=== PATIENT | female | born 1970 | race Hispanic/Latino ===

== ENCOUNTER 2018-12-03 07:13 | Day surgery (SDC) | payer OTHER ==
[2018-12-03] MEDS ORDERED: CEFAZOLIN/SWI 2gm 2 GM/20 ML SYR ONE (07:47)
[2018-12-03] MEDS ORDERED: Ringers Lactate 1,000 ML IV ONE (07:47)
[2018-12-03 07:51] LABS: Specific Gravity 1.025 (1.005-1.030)
[2018-12-03] MEDS ORDERED: PROPOFOL 200 MG/20 ML VIAL IV ONE (08:25)
[2018-12-03] MEDS ORDERED: GLYCOPYRROLATE 0.2 MG/ML SYR ONE (08:25)
[2018-12-03] MEDS ORDERED: MIDAZOLAM HCL 2 MG/2 ML INJ ONE (08:25)
[2018-12-03] MEDS ORDERED: LIDOCAINE 2% MPF 5 ML VIAL ONE (08:26)
[2018-12-03] MEDS ORDERED: FENTANYL CITR 250 MCG/5 ML ONE (08:27)
[2018-12-03] MEDS ORDERED: ROCURONIUM 50 MG/5 ML VIAL IV ONE (08:33)
[2018-12-03] MEDS ORDERED: ONDANSETRON 4 MG/2 ML VIAL ONE ×2 (08:33→12:05)
[2018-12-03] MEDS ORDERED: NEOSTIGMINE 1 MG/ML -10 ML VIAL ONE (08:33)
[2018-12-03] MEDS ORDERED: BUPIVACA 0.25%/EPI 0.0005%/PF 30 ML VIAL ONE (08:45)
[2018-12-03] MEDS ORDERED: NA CHLORIDE 0.9% 1,000 ML ONE (09:16)
--- NOTE | 2018-12-03 09:47 | P.OP ---
Flyer Repairer: Davi Galarza Preoperative diagnosis: Ventral Abdominal Wall Hernia Postoperative diagnosis: Ventral Abdominal Wall Hernia Primary procedure: Laparoscopic Ventral Abdominal Wall Hernia Repair with Mesh Secondary procedure: Laparoscopic adhesiolysis Anesthesia: GETA + Local Estimated blood loss: <2cc Specimen: None Findings: Ventral abdominal wall hernia - 5cm round Complications: None Implants: Bard Ventralite ST [id number] mesh with echo position Transferred to: Recovery Room Condition: Good
[2018-12-03] MEDS ORDERED: KETOROLAC 30 MG/ML INJ ONE (09:50)
[2018-12-03] MEDS ORDERED: HYDROCODONE/APAP 7.5/325 MG TAB ONE (11:53)
[2018-12-03 11:59] VITALS: TEMP 97.6
[2018-12-03 12:38] VITALS: BP 93/67; O2SAT 96
--- NOTE | 2018-12-03 20:08 | OP ---
Date of Procedure: 12/03/2018 Surgeon: Dagoberto Arias MD, Pump Runner: Debi Palencia. Preoperative Diagnosis: Ventral abdominal hernia. Postoperative Diagnosis: Ventral abdominal hernia. Procedures Performed: 1.Laparoscopic ventral abdominal hernia repair with mesh. 2.Laparoscopic adhesiolysis. Anesthesia: General endotracheal plus local with 0.25% Marcaine with epinephrine. Estimated Blood Loss: Less than 2 cc. Specimen: None. Findings: Ventral abdominal hernia approximately 5 cm, round, midline. Complications: None. Implants: Bard Ventralight ST 15 cm x 10 cm mesh with Echo Positioning System. Disposition: Transferred to recovery room in good condition. Procedure In Detail: Informed consent was obtained. The patient was brought to the operating room, prepped and draped in the usual sterile fashion after adequate anesthesia was achieved. An area of t he left upper quadrant was anesthetized with 0.25% Marcaine, sharply incised, a 5 mm 0-degree optical trocar was introduced in the abdomen without evidence of complication. Insufflation was obtained to 15 mmHg at this time. There was no injury to vital structures upon entry to the abdomen. The area was inspected for proper hemostasis and injury, which was achieved at this time. There was no bleedi ng from the port site specifically. Additional trocar site was chosen in the left lower quadrant. T his was similarly anesthetized, sharply incised. A 5 mm trocar was introduced in the abdomen without evidence of complication. Additional trocar site chosen in the right upper quadrant. This was annie larly anesthetized, sharply incised. A 5 mm trocar was introduced in the abdomen without evidence of complication. The left upper quadrant trocar was then up-sized to a 12 mm under direct visualizatio n without evidence of complication. Inspection showed that the patient had a large ventral hernia in the midline supraumbilical position with intraabdominal omental attachments. These were taken down using the LigaSure device to mobilize the omentum back in the normal anatomic position. At this poin t, the falciform ligament was taken down slightly superiorly using the LigaSure device to ensure a ni ce flat landing zone for the mesh should it become necessary. The hernia was sized to be approximate ly 5 cm in size and as such, a 10 cm x [address] mesh was brought onto the field, florecita marva in through the trocar, and the deployment system was deployed using a Alberto-Jovana suture pass er through the middle of the defect. At this point, the ReliaTack absorbable fixation system was use d to secure a circumferential crown of tacks, and the deployment system was then removed to the left lower quadrant 12 mm trocar and was taken out in its entirety. The remainder of the tacks were then placed into the abdominal wall in a double crown type fashion with good approximation of tissues. Th e left upper quadrant 12 mm trocar was then removed and the trocar site was closed using a Alberto-Art shepard suture passer with 0 Vicryl in interrupted fashion with good approximation of tissues. The abd omen was then completely desufflated under direct visualization without evidence of complication, and all trocars removed. All skin incisions were copiously irrigated and closed with a 4-0 Monocryl in a running fashion. Dermabond placed over top. The patient tolerated the procedure well without evid ence of complication and transferred to the PACU in good condition. All counts were correct at the e nd of the case. IZA/NIKHIL Voice ID: [id number] Report ID: [id number]
== END 2018-12-03 12:20 | disposition home or self-care (01) ==
LOC: OR 07:13
PROVIDERS: ATTEND Surgery
PROC: 0WUF4JZ Supplement Abdominal Wall with Synthetic Substitute, Percutaneous Endoscopic Approach (ICD-10-PCS; principal; 2018-12-03 08:30)
DX: K43.9 Ventral hernia without obstruction or gangrene (principal); K66.0 Peritoneal adhesions (postprocedural) (postinfection)
CPT/HCPCS: 81025; J0690; J2250; J2405; J2704; J2710; J3010; J7030

== ENCOUNTER 2019-02-04 08:32 | Day surgery (SDC) | payer OTHER ==
--- OUTSIDE RECORDS SUMMARY | 2019-02-04 08:35 | XMS REPORT ---
:1970 [facility] Address [address] [place] [address] Dr. Mahan [address] [place] [id number] Care Team Providers Name Role Phone Unavailable Unavailable Unavailable Problems This patient has no known problems. Allergies, Adverse Reactions, Alerts This patient has no known allergies or adverse reactions. Medications This patient has no known medications.
[2019-02-04 08:53] LABS: Specific Gravity 1.025 (1.005-1.030)
[2019-02-04] MEDS ORDERED: Ringers Lactate 1,000 ML IV ONE (09:01)
[2019-02-04] MEDS ORDERED: LIDOCAINE 1% W/EPI 1:100,000 MDV 50 ML VIAL ONE (10:55)
[2019-02-04] MEDS ORDERED: NA CHLORIDE 0.9% 1,000 ML ONE (10:55)
[2019-02-04] MEDS ORDERED: PROPOFOL 200 MG/20 ML VIAL IV ONE (10:56)
[2019-02-04] MEDS ORDERED: FENTANYL CITR 100 MCG/2 ML ONE (10:57)
[2019-02-04] MEDS ORDERED: MIDAZOLAM HCL 2 MG/2 ML INJ ONE (10:57)
[2019-02-04] MEDS ORDERED: LIDOCAINE 1% MPF 5 ML VIAL ONE (10:57)
[2019-02-04] MEDS ORDERED: ONDANSETRON 4 MG/2 ML VIAL ONE ×2 (10:58)
[2019-02-04] MEDS ORDERED: KETOROLAC 30 MG/ML INJ ONE (11:48)
[2019-02-04 12:32] VITALS: BP 114/57; TEMP 96.7; O2SAT 95
--- NOTE | 2019-02-04 23:18 | OP ---
Date of Procedure: 02/04/2019 Surgeon: Shruti Grimes MD Preoperative Diagnoses: Menorrhagia, AUB-O, morbid obesity, leiomyoma. Postoperative Diagnoses: Menorrhagia, AUB-O, morbid obesity, leiomyoma. Procedures Performed: Hysteroscopy, D and C. Anesthesia: General with LMA. Specimens: Endometrial curettings. Complications: No complications. Drains: No drains. Condition: Stable. Findings: Uterus anteflexed. Cavity empty. Both tubal ostia were well visualized. Endometrium thi ckened. Description Of Procedure: After informed consent was verified, the patient was taken back to the OR, placed in supine fashion on the operating table after general anesthesia was given. She was placed in a dorsal lithotomy position using Bautista stirrups. Pelvic exam performed. Uterus anteflexed about 8-week size. Speculum was placed to expose the cervix. Prep x3 with Betadine was done. Anterior l ip was grasped with 2 Allis clamps. Diagnostic SlimLine hysteroscope was introduced through the cerv ical canal with a 30-degree lens and normal saline as distention medium, 17-Turkish sheath without any problems. Under direct visualization, cavity was entered. The cavity appeared to be unremarkable. Endometrium appeared to be unremarkable. Both tubal ostia were normal. No intracavitary lesions or no impression of the leiomyoma into the endometrial canal. Scope was then removed after pictures were taken. A #2 endometrial curette was used for the curettin gs. Optimal sampling was performed, handed out for permanent pathology. All the instruments were re moved. Instrument and sponge counts were done and were correct at the end of the case. The patient tolerated the procedure well. She will follow up with me in 1 week. EBL minimal. SK/MODL Voice ID: [id number] Report ID: [id number]
== END 2019-02-04 13:00 | disposition home or self-care (01) ==
LOC: OR 08:32
PROVIDERS: ATTEND Obstetrics & Gynecology
PROC: 0UJD8ZZ Inspection of Uterus and Cervix, Via Natural or Artificial Opening Endoscopic (ICD-10-PCS; 2019-02-04)
PROC: 0UDB7ZX Extraction of Endometrium, Via Natural or Artificial Opening, Diagnostic (ICD-10-PCS; principal; 2019-02-04 10:30)
DX: N92.1 Excessive and frequent menstruation with irregular cycle (principal); D25.2 Subserosal leiomyoma of uterus; E66.01 Morbid (severe) obesity due to excess calories; Z68.37 Body mass index [BMI] 37.0-37.9, adult
CPT/HCPCS: 81025; 88305; J2250; J2405; J2704; J3010; J7030

== ENCOUNTER 2023-03-25 09:35 | Observation (INO) | payer OTHER ==
--- OUTSIDE RECORDS SUMMARY | 2023-03-25 09:38 | XMS REPORT | Continuity of Care Document ---
:[address] [facility] t Address [address] [facility] [address] [place] [address] Care Team Providers Name Role Phone Unavailable Unavailable Unavailable Problems Condition Condition Condition Status Onset Resolution Last Treating Co mments Source Name Details Category Date Date Treatment Clinician Date Pain, Pain, Diagnosis Active Common joint, joint, Spirit knee, knee, - [facility] right right [facility] Pain, Pain, Diagnosis Active Common joint, joint, Spirit knee, left knee, left [facility] Primary Primary Diagnosis Active Commo n osteoarthr osteoarthr Sp jadon itis of [facility]is of [facility] right knee right knee [facility] Primary Primary Diagnosis Active Commo n osteoarthr osteoarthr Sp jadon itis of itis of [facility] left knee left knee [facility] Allergies, Adverse Reactions, Alerts This patient has no known allergies or adverse reactions. Medications Ordered Filled Start Stop Current Ordering Indication Dosage Frequency Signature Comments Components Source Medication Medication Date Date Medication? Clinician (SIG) Name Name Cetirizine Cetirizine Yes Henry 1 tablet Common HCl HCl [facility] Benzonatate Benzonatate Yes Henry 1 capsule Common [facility] Probiotic Probiotic Yes Henry as Co mmon Jeong directed [facility] D3 Maximum D3 Maximum Yes Henry 1 capsule Common Strength Strength [facility] Procedures This patient has no known procedures. Encounters Start End Encounter Admission Attending Care Care Encounter Source Date/Time Date/Time Type Type Clinicians Facility Department ID 2019-06-14 2019-06-14 [id number] Common 08:30:00 08:30:00 [facility] Results This patient has no known results.
[2023-03-25] MEDS ORDERED: FAMOTIDINE 20 MG/2 ML VIAL IV ONE (10:18)
[2023-03-25] MEDS ORDERED: HALOPERIDOL LACT 5 MG/ML INJ ONE (10:18)
[2023-03-25] MEDS ORDERED: NA CHLORIDE 0.9% 1,000 ML ONE ×2 (10:18→12:51)
[2023-03-25 10:35] LABS: Absolute Lymphocytes (CBC) 0.8 K/uL (0.7-4.9); Hematocrit 41.1 % (36.0-45.0); Lymphocytes % 7.1 % (15.3-44.8); MCV 81.8 fL (80-100); MPV 7.1 fL (7.6-11.3); Platelets 296 thou/uL (152-406); RBC Red Blood Cell Count 5.03 M/uL (3.86-4.86)
[2023-03-25 10:45] LABS: Albumin 3.7 g/dL (3.4-5.0); Bilirubin Total 0.7 mg/dL (0.2-1.0); Potassium 3.5 mEq/L (3.5-5.1); Protein, Total 8.8 g/dL (6.4-8.2)
--- NOTE | 2023-03-25 11:28 | RAD REPORT ---
EXAM DESCRIPTION: CT - Abdomen Pelvis W Contrast - 03/25/2023 11:04 am CLINICAL HISTORY: Abdominal pain COMPARISON: 2011 TECHNIQUE: Computed axial tomography of the abdomen pelvis was obtained. 100 cc Isovue-300 was admin istered intravenously. Oral contrast was not requested which limits evaluation of bowel and appendix All CT scans are performed using dose optimization technique as appropriate and may include automated exposure control or mA/KV adjustment according to patient size. FINDINGS: Mild fatty liver. Multiple gallstones. Gallbladder wall is not thickened. Spleen, pancreas, adrenals and kidneys are unremarkable. Umbilical hernia with a neck 8 centimeters. Herniated sac 16 centimeters. Small and large bowel exten ds through the hernia. There is borderline dilatation of small bowel proximal to the hernia. No free air. No adnexal mass IMPRESSION: Large umbilical hernia containing small and large bowel. Borderline dilatation of small bowel proximal to the hernia suggests that a partial early mechanical obstruction may be present
[2023-03-25 12:09] LABS: Blood Morphology Comment NOT SEEN (NOT SEEN); Platelet Estimate ADEQ; White Blood Cell Scan OK (OK)
--- NOTE | 2023-03-25 12:43 | EDPHYS ---
Physician Documentation [facility] Name: Mary Salter Age: 52 yrs Sex: Female : 1970 Arrival Date: 03/25/2023 Time: 09:35 Bed 8 Private MD: ED Physician Eyal Vargas HPI: 03/25 11:39 This 52 yrs old Female presents to ER via Wheelchair with complaints of snw Abdominal Pain, Nausea/Vomiting. 11:39 The patient presents with abdominal pain in the upper abdomen. Onset: The snw symptoms/episode began/occurred suddenly, yesterday. The symptoms do not radiate. Associated signs and symptoms: Pertinent positives: nausea and vomiting. The symptoms are described as crampy, stabbing. Severity of pain: At its worst the pain was moderate. It is unknown whether or not the patient has recently seen a physician. Historical: - Allergies: 09:53 No Known Allergies; ap3 - Home Meds: 09:53 None [Active]; ap3 - PMHx: 09:53 None; ap3 - Immunization history:: Client reports receiving the 2nd dose of the Covid vaccine. - Social history:: Smoking status: Patient denies any tobacco usage or history of. ROS: 10:53 Constitutional: Negative for fever, chills, and weight loss, Eyes: Negative for injury, snw pain, redness, and discharge, ENT: Negative for injury, pain, and discharge, Neck: Negative for injury, pain, and swelling, Cardiovascular: Negative for chest pain, palpitations, and edema, Respiratory: Negative for shortness of breath, cough, wheezing, and pleuritic chest pain, Back: Negative for injury and pain, : Negative for injury, bleeding, discharge, and swelling, MS/Extremity: Negative for injury and deformity, Skin: Negative for injury, rash, and discoloration, Neuro: Negative for headache, weakness, numbness, tingling, and seizure, Psych: Negative for depression, anxiety, suicide ideation, homicidal ideation, and hallucinations. 10:53 Abdomen/GI: Positive for abdominal pain, nausea, vomiting, of the umbilical area, right upper quadrant and left upper quadrant. Exam: 10:51 Constitutional: This is a well developed, obese patient who is awake, alert, and in no snw acute distress. Head/Face: Normocephalic, atraumatic. Eyes: Pupils equal round and reactive to light, extra-ocular motions intact. Lids and lashes normal. Conjunctiva and sclera are non-icteric and not injected. Cornea within normal limits. Periorbital areas with no swelling, redness, or edema. ENT: Nares patent. No nasal discharge, no septal abnormalities noted. Tympanic membranes are normal and external auditory canals are clear. Oropharynx with no redness, swelling, or masses, exudates, or evidence of obstruction, uvula midline. Mucous membranes moist. Neck: Trachea midline, no thyromegaly or masses palpated, and no cervical lymphadenopathy. Supple, full range of motion without nuchal rigidity, or vertebral point tenderness. No Meningismus. Chest/axilla: Normal chest wall appearance and motion. Nontender with no deformity. No lesions are appreciated. Cardiovascular: Regular rate and rhythm with a normal S1 and S2. No gallops, murmurs, or rubs. Normal PMI, no JVD. No pulse deficits. Respiratory: Lungs have equal breath sounds bilaterally, clear to auscultation and percussion. No rales, rhonchi or wheezes noted. No increased work of breathing, no retractions or nasal flaring. Back: No spinal tenderness. No costovertebral tenderness. Full range of motion. Skin: Warm, dry with normal turgor. Normal color with no rashes, no lesions, and no evidence of cellulitis. MS/ Extremity: Pulses equal, no cyanosis. Neurovascular intact. Full, normal range of motion. Neuro: Awake and alert, GCS 15, oriented to person, place, time, and situation. Cranial nerves II-XII grossly intact. Motor strength 5/5 in all extremities. Sensory grossly intact. Cerebellar exam normal. Normal gait. Psych: Awake, alert, with orientation to person, place and time. Behavior, mood, and affect are within normal limits. 10:51 Abdomen/GI: Inspection: obese Bowel sounds: normal, Palpation: moderate abdominal tenderness, in the umbilical area, right upper quadrant and left upper quadrant. Vital Signs: 09:52 BP 133 / 65; Pulse 71; Resp 18; Temp 98.5; Pulse Ox 98% ; Weight 111.13 kg; Pain 10/10; ap3 12:35 BP 142 / 74; Pulse 75; Resp 18; Pulse Ox 99% ; ko1 14:19 BP 138 / 74; Pulse 70; Resp 16; Pulse Ox 100% ; ko1 09:52 Pain Scale: Adult ap3 MDM: 09:39 Patient medically screened. [facility] 11:38 Differential diagnosis: bowel obstruction, cholecystitis, Cholelithiasis, snw diverticulitis, gastritis, non-specific abd pain. Data reviewed: vital signs, nurses notes. Management of patient was discussed with the following: Heat Treatment Technician: Dr. Arias repaired ventral hernia in 2019. Consulted today for recommendations. I considered the following discharge prescriptions or medication management in the emergency department Medications were administered in the Emergency Department. See OCT. 12:38 Counseling: I had a detailed discussion with the patient and/or guardian regarding: the [facility] historical points, exam findings, and any diagnostic results supporting the discharge/admit diagnosis, the presence of at least one elevated blood pressure reading (>120/80) during this emergency department visit, lab results, radiology results, the need for further work-up and treatment in the hospital. Response to treatment: the patient's symptoms have markedly improved after treatment. ED course: Dr. Arias in to see pt> admit to hospitalist and consult him. 12:43 Management of patient was discussed with the following: Hospitalist: To be admitted to [facility] Dr. Arreaga, consult to Dr. Arias. 03/25 10:02 Order name: CBC with Diff; Complete Time: 12:15 snw 03/25 10:02 Order name: CMP; Complete Time: 10:48 snw 03/25 10:02 Order name: Lipase; Complete Time: 10:48 snw 03/25 10:02 Order name: Urinalysis w/ reflexes; Complete Time: 13:06 snw 03/25 12:09 Order name: CBC Smear Scan; Complete Time: 12:15 EDMS 03/25 15:12 Order name: Phosphorus; Complete Time: 15:15 EDMS 03/25 15:12 Order name: NT PRO-BNP; Complete Time: 15:15 EDMS 03/25 15:12 Order name: T4 Free; Complete Time: 15:15 EDMS 03/25 15:12 Order name: Magnesium; Complete Time: 15:15 EDMS 03/25 15:12 Order name: Thyroid Stimulating Hormone; Complete Time: 15:15 EDMS 03/25 10:02 Order name: CT Abd/Pelvis - IV Contrast Only; Complete Time: 11:31 snw 03/25 12:39 Order name: Diet Clear Liquid; Complete Time: 12:39 snw 03/25 14:26 Order name: Clear Liquid [facility] 03/25 10:02 Order name: IV Saline Lock; Complete Time: 10:23 snw 03/25 10:02 Order name: Labs collected and sent; Complete Time: 10:23 snw Administered Medications: 10:23 Drug: NS 0.9% IV 1000 ml Route: IV; Rate: 1 bolus; Site: right antecubital; ko1 10:23 Drug: Famotidine IVP 20 mg Route: IVP; Site: right antecubital; ko1 10:24 Drug: Haloperidol IVP 2.5 mg/50 mL 2.5 mg Route: IVP; Site: right antecubital; ko1 12:56 Drug: NS 0.9% IV 1000 ml Route: IV; Rate: 125 ml/hr; Site: right antecubital; ko1 12:57 Drug: Piperacillin-Tazobactam IVPB 3.375 grams Route: IVPB; Infused Over: 60 mins; ko1 Site: right antecubital; Disposition: 17:34 Co-signature as Attending Physician, Eyal Vargas MD I reviewed the patient's care rn provided by the Advanced Practice Provider and agree with the diagnosis and treatment plan. Disposition Summary: 03/25/23 12:43 Hospitalization Ordered Hospitalization Status: Observation snw Provider: Johnathan Arreaga Location: Telemetry/MedSurg (observation) snw Condition: Stable snw Problem: new snw Symptoms: have improved snw Bed/Room Type: Standard snw Room Assignment: 229(03/25/23 16:48) bd Diagnosis - Small bowel obstruction snw - Other cholelithiasis without obstruction snw Forms: - Medication Reconciliation Form snw - SBAR form snw - Leadership Thank You Letter snw Signatures: Dispatcher [employer] Elana Hay Shelly, FNP-C RATE INSERTER-Csnw Eyal Vargas MD MD rn Prokisch, Amanda, RN RN ap3 Clair Hilton RN RN ko1 Corrections: (The following items were deleted from the chart) 16:48 12:43 snw bd
--- NOTE | 2023-03-25 12:43 | ER ---
Nurse's Notes [facility] Name: Mary Salter Age: 52 yrs Sex: Female : 1970 Arrival Date: 03/25/2023 Time: 09:35 Bed 8 Private MD: Diagnosis: Small bowel obstruction;Other cholelithiasis without obstruction Presentation: 03/25 09:52 Chief complaint: Patient states: she started having mid left abdominal pain last night ap3 along with nausea and vomiting. patient states the location of her pain is the same location of which she had a hernia repair in the past. Coronavirus screen: At this time, the client does not indicate any symptoms associated with coronavirus-19. Ebola Screen: No symptoms or risks identified at this time. Initial Sepsis Screen: Does the patient meet any 2 criteria? No. Patient's initial sepsis screen is negative. Does the patient have a suspected source of infection? Yes: Acute abdominal pain. Risk Assessment: Do you want to hurt yourself or someone else? Patient reports no desire to harm self or others. Onset of symptoms was March 24, 2023. 09:52 Method Of Arrival: Wheelchair ap3 09:52 Acuity: SABRINA 3 ap3 Triage Assessment: 09:53 General: Appears ill, Behavior is calm, cooperative, appropriate for age. Pain: ap3 Complains of pain in umbilical area, right upper quadrant and right lower quadrant Pain currently is 10 out of 10 on a pain scale. Also complains of decreased appetite, nausea. Neuro: Level of Consciousness is awake, alert, obeys commands, Oriented to person, place, time, situation. Cardiovascular: Patient's skin is warm and dry. Respiratory: Airway is patent Respiratory effort is even, unlabored, Respiratory pattern is regular, symmetrical. GI: Reports lower abdominal pain, upper abdominal pain, nausea, vomiting. Historical: - Allergies: 09:53 No Known Allergies; ap3 - Home Meds: 09:53 None [Active]; ap3 - PMHx: 09:53 None; ap3 - Immunization history:: Client reports receiving the 2nd dose of the Covid vaccine. - Social history:: Smoking status: Patient denies any tobacco usage or history of. Screenin:54 [facility] ED Fall Risk Assessment (Adult) History of falling in the last 3 months, ap3 including since admission No falls in past 3 months (0 pts). Abuse screen: Denies threats or abuse. Nutritional screening: No deficits noted. Tuberculosis screening: No symptoms or risk factors identified. Assessment: 09:45 General: Appears in no apparent distress. ill, Behavior is calm, cooperative, ko1 appropriate for age. Pain: Complains of pain in abdomen. Neuro: No deficits noted. Cardiovascular: No deficits noted. Respiratory: No deficits noted. GI: Bowel sounds present X 4 quads. Abd is soft X 4 quads Abdomen is tender to palpation in umbilical area. : No deficits noted. EENT: No deficits noted. Derm: No deficits noted. Musculoskeletal: No deficits noted. Vital Signs: 09:52 BP 133 / 65; Pulse 71; Resp 18; Temp 98.5; Pulse Ox 98% ; Weight 111.13 kg; Pain 10/10; ap3 12:35 BP 142 / 74; Pulse 75; Resp 18; Pulse Ox 99% ; ko1 14:19 BP 138 / 74; Pulse 70; Resp 16; Pulse Ox 100% ; ko1 09:52 Pain Scale: Adult ap3 ED Course: 09:37 Patient arrived in ED. ts1 09:38 Salena Pérez FNP-C is [facility]. snw 09:38 Eyal Vargas MD is Attending Physician. snw 09:45 Provided Education on: NA. Door closed. Noise minimized. Lights dimmed. ko1 09:47 Shawnee Dalal, RN is Primary Nurse. ph 09:53 Triage completed. ap3 09:54 Arm band placed on right wrist. ap3 09:54 Patient has correct armband on for positive identification. Bed in low position. Call ap3 light in reach. Side rails up X 1. Adult w/ patient. Pulse ox on. NIBP on. 10:00 Inserted saline lock: 20 gauge in right antecubital area, using aseptic technique. ko1 Blood collected. 10:23 CBC with Diff Sent. ko1 10:23 CMP Sent. ko1 10:23 Lipase Sent. ko1 11:06 CT Abd/Pelvis - IV Contrast Only In Process Unspecified. EDMS 12:42 Johnathan Arreaga MD is Hospitalizing Provider. snw 14:19 No provider procedures requiring assistance completed. ko1 17:09 Patient admitted, IV remains in place. ko1 Administered Medications: 10:23 Drug: NS 0.9% IV 1000 ml Route: IV; Rate: 1 bolus; Site: right antecubital; ko1 10:23 Drug: Famotidine IVP 20 mg Route: IVP; Site: right antecubital; ko1 10:24 Drug: Haloperidol IVP 2.5 mg/50 mL 2.5 mg Route: IVP; Site: right antecubital; ko1 12:56 Drug: NS 0.9% IV 1000 ml Route: IV; Rate: 125 ml/hr; Site: right antecubital; ko1 12:57 Drug: Piperacillin-Tazobactam IVPB 3.375 grams Route: IVPB; Infused Over: 60 mins; ko1 Site: right antecubital; Medication: 14:19 VIS not applicable for this client. ko1 Outcome: 12:43 Decision to Hospitalize by Provider. snw 17:09 Admitted to Med/surg accompanied by tech, via wheelchair, room 229, with chart, Report ko1 called to ALEENA Petty 17:09 Condition: improved 17:09 Instructed on the need for admit. 17:24 Patient left the ED. ko1 Signatures: Dispatcher [employer] EDMS Salena Pérez, CLINICAL HAEMATOLOGIST-C CLINICAL HAEMATOLOGIST-Csnw Shawnee Dalal RN RN Goldie Medina RN RN ap3 Clair Hilton RN RN ko1 Cheyenne Rosenberg PAS PAS ts1
[2023-03-25] MEDS ORDERED: NA CHLORIDE 0.9% 250 ML ONE (12:52)
[2023-03-25] MEDS ORDERED: PIPERACIL/TAZO 3.375 GM VIAL IV ONE (12:52)
[2023-03-25 12:59] LABS: Urine Bilirubin NEGATIVE (Negative); Urine Blood Negative (Negative); Urine Clarity Clear (Clear); Urine Color Colorless (Yellow); Urine Glucose NEGATIVE (Negative); Urine Protein NEGATIVE (Negative); Urine Urobilinogen Normal (Normal); Urine pH 6.5 (5.0-7.0)
[2023-03-25 13:00] LABS: Specific Gravity > 1.030 (1.005-1.030)
[2023-03-25] MEDS ORDERED: ACETAMINOPHEN 325 MG TABLET PO PRN (14:30)
[2023-03-25] MEDS ORDERED: ONDANSETRON 4 MG/2 ML VIAL IV PRN (14:31)
--- NOTE | 2023-03-25 14:33 | P.HP ---
Certification for Inpatient Patient admitted to: Observation With expected LOS: <2 Midnights Patient will require the following post-hospital care: None Practitioner: I am a practitioner with admitting privileges, knowledge of patient current condition, hospital course, and medical plan of care. Services: Services provided to patient in accordance with Admission requirements found in Title 42 Section 412.3 of the Code of Federal Regulations Patient History Date of Service: 03/25/23 Reason for admission: Abdominal pain History of Present Illness: Patient is a 52-year-old female with a past medical history significant for morbid obesity, umbilical hernia who presents with complaint of abdominal pain located in the periumbilical area with radiation to the upper quadrants onset yesterday. Patient rated pain as 10/10 in severity and described pain as sharp in quality. Patient reported associated signs and symptoms of nausea, vomiting and chills. Patient denies any other signs and symptoms. Symptoms are aggravated or relieved by nothing. Patient decided to present to the hospital due to worsening symptoms. Of note, patient reported that her last bowel movement was yesterday. Allergies No Known Allergies Allergy (Verified 02/01/19 12:32) Home Medications: Aspirin [Aspirin EC 81 MG] 1 tab PO BEDTIME 03/25/23 - Past Medical/Surgical History -: Morbid obesity -: Umbilical hernia -: -: Left toe surgery - Family History Mother -: Hypertension, Other (see notes) Notes: HLD Father -: Hypertension, Diabetes, Stroke Notes: triple bypass, HLD - Social History Smoking Status: Never smoker Alcohol use: No CD- Drugs: No Caffeine use: Yes Place of Residence: Home Review of Systems General: Chills Eyes: Unremarkable ENT: Unremarkable Respiratory: Unremarkable Cardiovascular: Unremarkable Gastrointestinal: Nausea, Vomiting, Abdominal Pain Genitourinary: Unremarkable Musculoskeletal: Unremarkable Integumentary: Unremarkable Neurological: Unremarkable Lymphatics: Unremarkable Physical Examination - Physical Exam General: Alert, In no apparent distress, Oriented x3, Cooperative HEENT: Atraumatic, PERRLA, Mucous membr. moist/pink, EOMI, Sclerae nonicteric Neck: Supple, 2+ carotid pulse no bruit, No LAD, Without JVD or thyroid abnormality Respiratory: Clear to auscultation bilaterally, Normal air movement Cardiovascular: No edema, Regular rate/rhythm, Normal S1 S2 Capillary refill: <2 Seconds Gastrointestinal: Normal bowel sounds, Distended, Tenderness Musculoskeletal: No clubbing, No swelling, No contractures, No tenderness Integumentary: No rashes, No breakdown, No significant lesion Neurological: Normal speech, Normal tone, Normal affect Lymphatics: No axilla or inguinal lymphadenopathy - Studies Laboratory Data (last 24 hrs) 03/25/23 03/25/23 10:15 10:15 WBC 10.80 Hgb 13.5 Hct 41.1 Plt Count 296 Sodium 137 Potassium 3.5 BUN 20 H Creatinine 0.76 Glucose 151 H Total Bilirubin 0.7 AST 26 ALT 31 Alkaline Phosphatase 106 Lipase 20 Assessment and Plan - Plan --Partial SBO. CT imaging indicates Large umbilical hernia containing small and large bowel. Borderline dilatation of small bowel proximal to the hernia suggests that a partial early mechanical obstruction may be present. Surgeon consulted-recommends conservative management for now. Recommended placing patient on a clear liquid diet. Continue IV hydration. Continue supportive care. -- Acute pain. We will manage pain with current pain medication regimen. --Super obesity. BMI greater than 50. Patient counseled on weight reduction, diet and excise therapy. --Umbilical hernia. Patient has a history of umbilical hernia. Further management per surgeon. --Nausea and vomiting. Antiemetics on board. Continue IV hydration. Continue supportive care --DVT prophylaxis with Lovenox subQ. Discharge Plan: Home Plan to discharge in: 48 Hours - Advance Directives Does patient have a Living Will: No Does patient have a Durable POA for Healthcare: No - Code Status/Comfort Care Code Status Assessed: Yes Physician Review: Patient Assessed, Agree with Above Assessment and Plan Critical Care: No
[2023-03-25] MEDS: NA CHLORIDE 0.9% 1,000 ML IV SCH (15:00)
[2023-03-25 15:11] LABS: Magnesium 2.3 mg/dL (1.6-2.4); Phosphorus 2.4 mg/dL (2.5-4.9); Thyroid Stimulating Hormone 0.41 uIU/mL (0.358-3.740)
[2023-03-25 17:32] VITALS: O2SAT 100
[2023-03-25 17:54] VITALS: BMI 37.2
[2023-03-25] MEDS ORDERED: PNEUMOCOCCAL VACCINE 0.5 ML IMVAC ONE (21:30)
[2023-03-26] MEDS: NA CHLORIDE 0.9% 1,000 ML IV SCH ×2 (00:31→10:35)
[2023-03-26 03:49] LABS: Absolute Lymphocytes (CBC) 2.2 K/uL (0.7-4.9); Hematocrit 34.6 % (36.0-45.0); Lymphocytes % 30.5 % (15.3-44.8); MCV 81.6 fL (80-100); MPV 7.2 fL (7.6-11.3); Platelets 256 thou/uL (152-406); RBC Red Blood Cell Count 4.24 M/uL (3.86-4.86)
[2023-03-26 04:02] LABS: Albumin 2.8 g/dL (3.4-5.0); Bilirubin Total 0.8 mg/dL (0.2-1.0); Potassium 3.6 mEq/L (3.5-5.1); Protein, Total 6.7 g/dL (6.4-8.2)
[2023-03-26] MEDS ORDERED: POTASSIUM PHOS IN 0.9 % NACL 15 MMOL/250 ML BAG IV ONE (05:01)
[2023-03-26] MEDS ORDERED: ENOXAPARIN 40 MG/0.4 ML SQ SCH (09:00)
[2023-03-26] MEDS ORDERED: ASPIRIN 81 MG CHEWABLE TABLET PO SCH (09:00)
--- NOTE | 2023-03-26 10:45 | CON ---
Date of Consultation: 03/25/2023 Brief History Of Present Illness: The patient is a 52-year-old woman, known to me for past medical h istory of morbid obesity, ventral abdominal hernia repair approximately 4 to 5 years ago, who present s with complaints of abdominal pain in the periumbilical region with radiation to the upper quadrant yesterday. It was 10/10 at home and since being in the emergency room, she has noted significant imp rovement and almost complete resolution of her abdominal pain. She has had a bowel movement as of . No more nausea, vomiting, and the pain is significantly subsided. At this point, she did h ave some nausea, vomiting, and chills prior to this. No sick contacts. No recent travel. No new fo od exposures. Past Medical History: Significant for morbid obesity. Past Surgical History: Included , left toe surgery, and a ventral abdominal hernia repair w ith mesh approximately 4 to 5 years ago. Allergies: NO KNOWN DRUG ALLERGIES. Home Medications: Include aspirin. Family History: Significant for hypertension in her mother and father as well and a triple bypass in her father. Social History: She denies smoking, alcohol, or recreational drug use. Review of Systems: A 10-point review of systems other than HPI, currently denies. Physical Examination: General: At the time of my examination; she is awake, alert, oriented. Psychiatric: Appropriate, conversive. HEENT: She is normocephalic. Sclerae anicteric. Mucous membranes are moist. Oropharynx is clear. Neck: Supple without JVD. Chest: Expansion and excursion. Cardiovascular: Regular rate and rhythm. Pulmonary: Clear to auscultation bilaterally. Abdomen: Soft with positive palpable ventral abdominal hernia. Minimal tenderness to deep palpation . No rebound. No guarding. No focal peritonitis. The hernia is absolutely irreducible as it is qu ite large and she is quite obese, essentially almost completely benign abdominal exam. Extremities: No clubbing, cyanosis, or edema. Skin: Warm and dry. Vital Signs: Blood pressure is 122/59, pulse is 71, respiratory rate 17, temperature 98.6, SpO2 94% on room air. Laboratory Data: Revealed a white blood cell count of 10.8, hemoglobin 13.5, hematocrit 41.1, platel et count was 296, neutrophils are 87%. Sodium 137, potassium 3.5, chloride 105, carbon dioxide 30, B UN 20, creatinine 0.76, glucose 151, phosphorus 2.4, magnesium 2.3, total bilirubin 0.7, direct compo nent was not measured. AST 26, ALT 31, alkaline phosphatase 106. UA was essentially negative. She had imaging performed, which included a CT of the abdomen and pelvis, which was officially read as la rge umbilical hernia containing small and large bowel, borderline dilatation of small bowel proximal to the hernia suggests that a partial early mechanical obstruction may be present. Assessment And Plan: This is a 52-year-old female, who comes in with signs and symptoms of a recurre nt ventral abdominal wall hernia. 1.IV fluid hydration. 2.N.p.o. status. 3.Serial abdominal exams. 4.I have explained the risks, benefits, and alternatives of nonoperative versus operative management as she currently has minimal symptoms and has ongoing normal bowel function at this time. We will s tart her on clear liquid diet and advance as tolerated in the upcoming day and we will attempt nonope rative management. If she fails the nonoperative management, I have discussed the risks, benefits, a nd alternatives of laparoscopic possible open hernia repair including, but not limited to bleeding, i nfection, damage to surrounding tissue, need for further operation and procedures, blood clots, heart attacks, strokes, and other unforeseen complication related to anesthesia, possible need for bowel r esection as well. The patient displayed understanding of the above stated plan and agrees to proceed with nonoperative management at this point and we will consider operative management should she not improve. Thank you for this interesting consult. IZA/NIKHIL Voice ID: [id number] Report ID: [id number]
--- NOTE | 2023-03-26 16:30 | P.DS ---
Admission Date: 03/25/23 Discharge Date: 03/26/23 Disposition: ROUTINE DISCHARGE Discharge Condition: GOOD Reason for Admission: Abdominal pain Consultations: 1. General Surgery Hospital Course: DIAGNOSES: # Partial Mechanical Small Bowel Obstruction secondary to Umbilical Hernia - resolved # Cholelithiasis # Fatty Liver # Morbid Obesity - BMI 37.3 kg/m2 HOSPITAL COURSE: Ms. Mary Salter is a pleasant 52 year old female with a past medical history significant for an umbilical hernia who was admitted to the [facility] on 03/25/2023 for abdominal pain, nausea, and vomiting. She was admitted to the Medicine service. Upon further evaluation, her CT abdomen/pelvis revealed, "large umbilical hernia containing small and large gwen wel. Borderline dilatation of small bowel proximal to the hernia suggests that a partial early mechanical obstruction may be present." She was placed NPO and started on PRN pain medications. General Surgery was consulted and she was evaluated by Dr. Arias. He recommended non-operative management. Her diet was gradually advanced and she tolerated a GI soft diet, without any issues. She has is passing flatus and has had a bowel movement. Dr. Arias has cleared her for discharge with outpatient follow-up. On 03/26/2023, she was seen on rounds and deemed medically stable for discharge. She was discharged with instructions to schedule follow-up appointments with her PCP (Dr. Mahmood) and with General Surgery (Dr. Arias). She was given the opportunity to ask questions and reported no further questions. Furthermore, all questions were answered to the best of my ability. A copy of this discharge summary will be sent to the above providers to facilitate continuity of care. Today, I personally spent 25 minutes on her case, of which greater than 50% of the time was spent in patient education, counseling, and coordination of care as described above. Vital Signs/Physical Exam: Temp Pulse Resp BP Pulse Ox 97.2 F 60 20 118/59 L 93 03/26/23 08:00 03/26/23 08:00 03/26/23 08:00 03/26/23 08:00 03/26/23 08:00 General: Alert, In no apparent distress, Oriented x3 HEENT: Atraumatic, Mucous membr. moist/pink, Sclerae nonicteric Neck: JVD not distended Respiratory: Clear to auscultation bilaterally, Normal air movement Cardiovascular: No edema, Regular rate/rhythm, Normal S1 S2, No gallops, No rubs, No murmurs Gastrointestinal: Normal bowel sounds, Soft and benign, Non-distended, No tenderness, No rebound, No guarding, Other (reducible umilical hernia) Musculoskeletal: No clubbing Integumentary: No rashes Neurological: Normal speech, Normal affect Laboratory Data at Discharge: WBC 7.40 thou/uL (4.3-10.9) 03/26/23 03:09 Hgb 11.4 g/dL (12.0-15.0) L D 03/26/23 03:09 Hct 34.6 % (36.0-45.0) L 03/26/23 03:09 Plt Count 256 thou/uL (152-406) 03/26/23 03:09 Sodium 139 mEq/L (136-145) 03/26/23 03:09 Potassium 3.6 mEq/L (3.5-5.1) 03/26/23 03:09 BUN 13 mg/dL (7-18) 03/26/23 03:09 Creatinine 0.69 mg/dL (0.55-1.02) 03/26/23 03:09 Glucose 107 mg/dL (74-106) H 03/26/23 03:09 Phosphorus 2.4 mg/dL (2.5-4.9) L 03/25/23 10:15 Magnesium 2.3 mg/dL (1.6-2.4) 03/25/23 10:15 Total Bilirubin 0.8 mg/dL (0.2-1.0) 03/26/23 03:09 AST 16 U/L (15-37) 03/26/23 03:09 ALT 21 U/L (13-56) 03/26/23 03:09 Alkaline Phosphatase 72 U/L (45-117) D 03/26/23 03:09 Triglycerides 104 mg/dL (<150) 03/26/23 03:09 Cholesterol 127 mg/dL (<200) 03/26/23 03:09 HDL Cholesterol 32 mg/dL (40-60) L 03/26/23 03:09 Cholesterol/HDL Ratio 3.97 03/26/23 03:09 Lipase 20 U/L (13-75) 03/25/23 10:15 Home Medications: Aspirin [Aspirin EC 81 MG] 1 tab PO BEDTIME 03/25/23 Physician Discharge Instructions: 1. Please call and schedule a follow-up appointment with your PCP (Dr. Mahmood) in 3-5 days - Your CT scan showed fatty liver. Please discuss with your PCP for further evaluation. - Your bloodwork showed mild anemia. Please discuss with your PCP - particularly the possible need for a colonoscopy 2. Please call and schedule a follow-up appointment with your General Surgery (Dr. Arias) in 3-5 days - He will discuss surgery to repair your hernia as an outpatient - Your CT scan showed gallstones. Please discuss with Dr. Arias for further evaluation Diet: AHA Activity: Ad niesha Followup: Dagoberto Arias MD [ACTIVE - CAN ADMIT] - (Call to schedule appointment) Kalin Mahmood MD [ACTIVE - CAN ADMIT] - (Call to schedule appointment) Time spent managing pt's care (in minutes): 25
[2023-03-26 17:34] VITALS: BP 135/65; TEMP 97.3
== END 2023-03-26 18:45 | disposition home or self-care (01) ==
LOC: ER 09:35 → ERHOLD 14:21 → INTOOBSV 14:21 → 2ND 17:07 → OBSVTOIN 03-26 13:42 → INTOOBSV 03-26 13:42
PROVIDERS: ADMIT Internal Medicine; ATTEND Internal Medicine
DX: K42.9 Umbilical hernia without obstruction or gangrene (principal); K56.609 Unspecified intestinal obstruction, unspecified as to partial versus complete obstruction; E66.01 Morbid (severe) obesity due to excess calories; R11.2 Nausea with vomiting, unspecified; R52 Pain, unspecified; K80.20 Calculus of gallbladder without cholecystitis without obstruction; K76.0 Fatty (change of) liver, not elsewhere classified; Z68.37 Body mass index [BMI] 37.0-37.9, adult; Z71.3 Dietary counseling and surveillance
CPT/HCPCS: 36415; 74177; 80053; 80061; 81003; 83690; 83735; 83880; 84100; 84439; 84443; 85025; 96374; 96375; 99285; J1630; J1650; J2543; J7030; J7050; Q9967

== ENCOUNTER 2023-04-11 10:06 | Day surgery (SDC) | payer OTHER ==
[2023-04-11] MEDS ORDERED: Ringers Lactate 1,000 ML IV ONE ×2 (10:33→13:31)
[2023-04-11] MEDS ORDERED: propofoL 200 MG/20 ML VIAL IV ONE (11:34)
[2023-04-11] MEDS ORDERED: ROCURONIUM 50 MG/5 ML VIAL IV ONE (11:34)
[2023-04-11] MEDS ORDERED: LIDOCAINE 2% MPF 5 ML VIAL ONE (11:34)
[2023-04-11] MEDS ORDERED: FENTANYL CITR 100 MCG/2 ML ONE (11:34)
[2023-04-11] MEDS ORDERED: dexAMETHasone 10 MG/ML VIAL ONE (11:34)
[2023-04-11] MEDS ORDERED: MIDAZOLAM HCL 2 MG/2 ML INJ ONE (11:35)
[2023-04-11] MEDS ORDERED: ONDANSETRON 4 MG/2 ML VIAL ONE (11:35)
[2023-04-11] MEDS ORDERED: KETOROLAC 30 MG/ML INJ ONE (11:35)
[2023-04-11] MEDS ORDERED: KETAMINE HCL IN 0.9 % NACL 50 MG/5 ML SYRINGE IV ONE (11:35)
[2023-04-11] MEDS: BUPIVACAINE 0.25% PF 30 ML VIAL ONE ×3 (11:39→12:16)
[2023-04-11] MEDS: CEFAZOLIN SODIUM 2 GM/VIAL ONE ×2 (11:39→12:05)
[2023-04-11] MEDS ORDERED: EPHEDRINE SULF 50 MG/ML VIAL ONE (12:19)
--- NOTE | 2023-04-11 13:36 | P.OP ---
Preoperative diagnosis: Recurrent Ventral Abdominal Hernia Postoperative diagnosis: Recurrent Ventral Abdominal Hernia Primary procedure: Laparoscopic Ventral Hernia Repair with mesh Anesthesia: GETA + Local Estimated blood loss: <10 cc Specimen: omental tissue Findings: ~ 10cm recurrent vent hernia lateral to prior hernia, incarcerated SB, omen Complications: None Implants: Bard Ventralite ST [id number] mesh, sorbafix x 90 tacks Transferred to: Recovery Room Condition: Good
[2023-04-11] MEDS: HYDROMORPHONE HCL 1 MG/ML INJ ONE ×2 (14:04→14:09)
--- NOTE | 2023-04-11 15:07 | OP ---
Date of Procedure: 04/11/2023 Surgeon: Dagoberto Arias MD, Preoperative Diagnosis: Recurrent ventral abdominal hernia. Postoperative Diagnosis: Recurrent ventral abdominal hernia. Procedure: Laparoscopic ventral hernia repair with mesh. Anesthesia: General endotracheal plus local with 0.25% Marcaine. Estimated Blood Loss: Less than 10 cc. Specimen: Omental tissue. Findings: Approximately 10 cm recurrent ventral hernia lateral to prior hernia mesh in place without evidence of bowel adhesions to the mesh. Incarcerated small bowel was noted within the hernia defec t as well as omentum contained and incarcerated within the hernia defect site, which had to be resect ed. Complications: None. Implants: Bard Ventralight ST mesh with Echo Positioning System mesh was utilized with So rbaFix absorbable fixation tacks, 90 tacks utilized. Disposition: The patient was transferred to the recovery room in good condition. Procedure In Detail: After informed consent was obtained, the patient was brought to the operating r oom, prepped and draped in the usual sterile fashion after adequate anesthesia was achieved. I anest hetized an area near the left upper quadrant down to subcutaneous tissues. A 5 mm 0-degree optical t rocar was introduced into the abdomen without evidence of complication. Insufflation was obtained to 15 mmHg at this time. There was no injury to vital structures upon entry into the abdomen. Inspect ion of a significant 10 cm midline ventral hernia slightly listing to the right midline with containe d omentum and small bowel. I placed 2 additional trocars, 1 in the left lower quadrant. This was si milarly anesthetized, sharply incised, and a 12 mm trocar was placed under direct vision without evid ence of complication. Right upper quadrant trocar was placed. This was a 5 mm trocar and placed und er direct vision without evidence of complication. Ratcheted grasper was used to grasp the patient's small bowel and remove it gently and insufflation helped to assist with reduction of the small bowel contents to the normal anatomic position within the abdominal compartment. The omentum, however, wa s significantly stuck and incarcerated into the hernia defect. This required the LigaSure device to take some of these adhesions down as well as to remove portions of the omentum, which were incarcerat ed and unable to be removed and separate it easily. At this point, this tissue was sent off for path ologic examination. After the hernia was swept and completely clean, the area was inspected. I then brought in 3 separate 0 V-Loc sutures on an Endo Stitch and closed the defect implicating the hernia sac, closing the space entirely and eliminating the space at this point. The approximation of the fascia was quite good at this point. I then brought in Bard Ventralight mesh in an ov al shape and deployed the balloon deployment system with superior aspect of the umbilicus. I anesthe tized the area down through the subcutaneous tissues and the balloon was deployed at this point. At this point, I used SorbaFix absorbable fixation tacks to secure the mesh to the anterior abdominal wa ll with a single crown. At this point, I removed the balloon deployment system and found to be intac t on the back table. I then reinforced the mesh to the anterior bowel wall with a total of 90 tacks in a double crown type orientation with good apposition of the mesh to the anterior abdominal wall. At this point, the area was inspected for hemostasis. No hemostatic maneuvers were required. There was no bleeding from any of the sites at this point. I then closed the 12 mm trocar site using a Isma pompa-Jovana suture passer with 0 Vicryl in an interrupted fashion with good approximation of tissues . The abdomen was completely desufflated under direct vision without evidence of complication. Richa ining trocars were removed. All skin incisions were then copiously irrigated and closed with a 4-0 M onocryl in a running fashion. Dermabond placed over top. The patient tolerated the procedure well without evidence of complication and transferred to PACU in good condition. All counts were correct at the end of the case. IZA/NIKHIL Voice ID: [id number] Report ID: [id number]
[2023-04-11 15:14] VITALS: BP 119/58; TEMP 97; O2SAT 92
[2023-04-11] MEDS ORDERED: HYDROCODONE/APAP 10/325 TAB ONE (15:15)
--- NOTE | 2023-04-11 15:21 | EKG ---
Test Date: 2023-04-11 Test Time: 08:35:14 Customer Sales Service Manager: LAUREL MEASUREMENT RESULTS: Intervals: Rate: 57 HI: 164 QRSD: 80 QT: 390 QTc: 379 [place]ar[place]: P: 63 HI: 164 QRS: 61 T: 62 INTERPRETIVE STATEMENTS: Sinus bradycardia Otherwise normal ECG No previous ECG available for comparison Electronically Signed On 04-11-23 15:20:31 CDT by John Powers
== END 2023-04-11 15:32 | disposition home or self-care (01) ==
LOC: OR 10:06
PROVIDERS: ATTEND Surgery
PROC: 0DNU4ZZ Release Omentum, Percutaneous Endoscopic Approach (ICD-10-PCS; 2023-04-11)
PROC: 0WUF4JZ Supplement Abdominal Wall with Synthetic Substitute, Percutaneous Endoscopic Approach (ICD-10-PCS; principal; 2023-04-11 12:30)
DX: K43.2 Incisional hernia without obstruction or gangrene (principal); K66.0 Peritoneal adhesions (postprocedural) (postinfection)
CPT/HCPCS: 93005; 88302; 49329; 49615; J2704; J2001; J2250; J3010; J1100; J1170; J2405; J7120; 88304

== ENCOUNTER 2023-06-02 09:36 | Day surgery (SDC) | payer OTHER ==
[2023-05-30 11:11] LABS: Potassium 3.8 mEq/L (3.5-5.1)
[2023-06-02] MEDS ORDERED: Ringers Lactate 1,000 ML IV ONE (10:12)
[2023-06-02] MEDS ORDERED: propofoL 200 MG/20 ML VIAL IV ONE ×2 (11:15→12:06)
== END 2023-06-02 12:15 | disposition home or self-care (01) ==
LOC: OR 09:36
PROVIDERS: ATTEND Surgery
PROC: 0DJD8ZZ Inspection of Lower Intestinal Tract, Via Natural or Artificial Opening Endoscopic (ICD-10-PCS; principal; 2023-06-02 11:30)
DX: Z12.11 Encounter for screening for malignant neoplasm of colon (principal); K57.30 Diverticulosis of large intestine without perforation or abscess without bleeding; K64.8 Other hemorrhoids
CPT/HCPCS: 80048; 36415; 45378; J2704 ×2; J7120